=== PATIENT | male | born 1985 | race Caucasian/White ===

== ENCOUNTER 2022-09-28 20:14 | Emergency (ER) | payer MEDICAID ==
[~2022-09-28] VITALS: Ht 175.3 cm; Wt 76.0 kg
[2022-09-28] MEDS ORDERED: IBUPROFEN 600MG TABLET PO STA (20:29)
[2022-09-28] MEDS ORDERED: IBUP-2029 MT (22:11)
[2022-09-28 22:16] VITALS: BP 111/80
== END 2022-09-28 22:35 | disposition home or self-care (01) ==
LOC: ER 20:14
DX: R51.9 Headache, unspecified (principal)
CPT/HCPCS: 70450; 99284; Z7610